=== PATIENT | female | born 1945 | race Caucasian/White ===

== ENCOUNTER → 2017-08-13 | Outpatient (CLI) | payer OTHER | LOC: PLD 15:51 → LAB SHORT 15:51 | DX: L72.0 Epidermal cyst (principal) | CPT/HCPCS: 88304 ==

== ENCOUNTER → 2020-08-01 | Outpatient (CLI) | payer MEDICARE | END | disposition home or self-care (01) | LOC: LAB SHORT 15:48 → PLD 15:48 | DX: L82.0 Inflamed seborrheic keratosis (principal) | CPT/HCPCS: 88305 ==

== ENCOUNTER 2024-11-01 00:41 | Emergency (ER) | payer MEDICARE ==
[~2024-11-01] VITALS: Ht 162.6 cm; Wt 77.1 kg
[2024-11-01] MEDS ORDERED: LIDO700A20 TOP (02:14)
[2024-11-01] MEDS ORDERED: Norco 5-325 Ta1 EACH PO (02:14)
[2024-11-01] MEDS ORDERED: Lidocaine 4% 1 Patch TOP ONE (02:15)
[2024-11-01] MEDS ORDERED: HYDROcodone 5-APAP 325 TAB PO ONE (02:15)
[2024-11-01 03:04] VITALS: BP 130/71
== END 2024-11-01 03:08 | disposition home or self-care (01) ==
LOC: ER 00:41
DX: S16.1XXA Strain of muscle, fascia and tendon at neck level, initial encounter (principal); Z91.018 Allergy to other foods; W22.8XXA Striking against or struck by other objects, initial encounter
CPT/HCPCS: 70450; 72125; 99283-25; A9270